=== PATIENT | female | born 1965 | race Caucasian/White ===

== ENCOUNTER → 2018-09-01 | Outpatient (CLI) | payer OTHER ==
[~2018-09-01] VITALS: Ht 162.6 cm; Wt 74.8 kg
[~2018-09-01] MED LIST: CIPR500T78 PO; CODE-54 PO; LIDOCAINE 1% INJ 20 ML 20 ML VIAL INJ ONE; LIDOCAINE 1% INJ 20 ML 20 ML VIAL ONE; ONDA-42 SL; OXYC-272 PO
--- NOTE | 2018-09-01 10:46 | Diagnostic Imaging Report ---
Right shoulder injection for MRI. INDICATION: Shoulder pain. COMPARISON: There are no prior studies available for comparison. PROCEDURE: Following aseptic preparation of the skin and administration of local anesthesia, a 21-gauge needle was advanced into the glenohumeral joint using fluoroscopic guidance. Subsequently, 12 cc of a mixture of Omnipaque 240, Gadavist and sodium chloride was infused. The patient tolerated the procedure well and was sent to the MR suite in good condition. 24.9 seconds of fluoroscopy time was utilized. IMPRESSION: There has been successful injection of the right glenohumeral joint. MRI is pending for further study. Dictated by: Dictated on workstation # [id number]
--- NOTE | 2018-09-01 10:58 | Diagnostic Imaging Report ---
EXAMINATION: MRI of the right upper extremity with contrast. INDICATION: Shoulder pain. TECHNIQUE: Multiplanar images utilizing both T1 and T2-weighted sequences were performed. This study was conducted following administration of intraarticular contrast. FINDINGS: On the coronal fat-saturated series, there is a linear collection of fluid along the anterior margin of the superior glenoid labrum. This does suggest a SLAP 2 tear. Furthermore the middle glenohumeral ligament is somewhat indistinct in this area and may be partially torn as well. There is no other labral tear identified. There is no abnormal signal arising from the rotator cuff to suggest a tear. The supraspinatus muscle is not retracted or bunched. There is hypertrophy of the acromioclavicular joint and this does result in slight narrowing of the outlet for the supraspinatus muscle. The biceps tendon and the subscapularis tendon are intact. There is no abnormal signal arising from the osseous structures to indicate bone edema or fracture. IMPRESSION: 1. There is a SLAP 2 tear of the anterior labrum superiorly. The indistinct appearance of the middle glenohumeral ligament in this region also suggests that the ligament is partially torn. The labrum is otherwise intact. 2. There is no evidence for an injury to the rotator cuff. 3. There is hypertrophy of the acromioclavicular joint and this does result in mild narrowing of the outlet for the supraspinatus muscle. 4. There is no sign of an acute bony abnormality. Dictated by: Dictated on workstation # [id number]
== END ==
LOC: RAD 08:37
PROVIDERS: ATTEND Orthopaedic Surgery
DX: S43.491A Other sprain of right shoulder joint, initial encounter (principal); S43.431A Superior glenoid labrum lesion of right shoulder, initial encounter; M62.89 Other specified disorders of muscle
CPT/HCPCS: 23350; 73040; 73222

== ENCOUNTER 2020-06-06 05:36 | Outpatient (RCR) | payer OTHER ==
[2020-05-31 12:30] LABS: BASOPHILS # (AUTO) 0.1 10^3/uL (0.0-0.1); BASOPHILS % (AUTO) 1 % (0-10); EOSINOPHILS # (AUTO) 0.2 10^3/uL (0.0-0.3); EOSINOPHILS % (AUTO) 4 % (0-10); HEMATOCRIT 41 % (35-52); HEMOGLOBIN 13.6 g/dL (11.5-16.0); LYMPHOCYTES # (AUTO) 2.1 10^3/uL (1.0-4.0); LYMPHOCYTES % (AUTO) 37 % (12-44); MEAN CORPUSCULAR HEMOGLOBIN 30 pg (25-34); MEAN CORPUSCULAR HGB CONC 33 g/dL (32-36); MEAN CORPUSCULAR VOLUME 90 fL (80-99); MEAN PLATELET VOLUME 12.1 fL (9.0-12.2); MONOCYTES # (AUTO) 0.4 10^3/uL (0.0-1.0); MONOCYTES % (AUTO) 7 % (0-12); NEUTROPHILS % (AUTO) 52 % (42-75); PLATELET COUNT 171 10^3/uL (130-400); WHITE BLOOD COUNT 5.7 10^3/uL (4.3-11.0)
[2020-05-31 12:33] LABS: BILIRUBIN,URINE NEGATIVE (NEGATIVE); CLARITY,URINE SL CLOUDY; COLOR,URINE YELLOW; GLUCOSE, URINE (UA) NEGATIVE (NEGATIVE); KETONES,URINE NEGATIVE (NEGATIVE); LEUKOCYTE ESTERASE ,URINE NEGATIVE (NEGATIVE); NITRITE,URINE NEGATIVE (NEGATIVE); PROTEIN,URINE NEGATIVE (NEGATIVE)
[2020-05-31 12:39] LABS: BACTERIA,URINE NEGATIVE /HPF; CALCIUM OXALATE CRYSTALS,UR LARGE /LPF
--- NOTE | 2020-05-31 12:41 | Diagnostic Imaging Report ---
EXAMINATION: PA and lateral chest at 12:29 p.m. INDICATION: Preop. FINDINGS: There are no prior studies available for comparison. The heart size is within normal limits. The lungs are clear. There is no evidence for failure, pneumonia, or for a pleural effusion. The mediastinum is not widened. The osseous structures are intact. There is an orthopedic plate and screw fixation device overlying the lower cervical spine. IMPRESSION: There is no evidence for an acute cardiopulmonary abnormality. Dictated by: Dictated on workstation # [id number]
[2020-05-31 12:43] LABS: INR 0.9 (0.8-1.4); PROTHROMBIN TIME PATIENT 12.9 SEC (12.2-14.7)
[2020-05-31 12:45] LABS: ERYTHROCYTE SEDIMENTATION RATE 10 MM/HR (0-30)
[2020-05-31 12:52] LABS: ALANINE AMINOTRANSFERASE 21 U/L (0-55); ALBUMIN 3.8 GM/DL (3.2-4.5); ALKALINE PHOSPHATASE 120 U/L (40-136); BILIRUBIN,TOTAL 0.3 MG/DL (0.1-1.0); BUN/CREATININE RATIO 25; CALCIUM 8.4 MG/DL (8.5-10.1); CARBON DIOXIDE 24 MMOL/L (21-32); CHLORIDE 106 MMOL/L (98-107); CREATININE SERUM 0.76 MG/DL (0.60-1.30); GFR ESTIMATED > 60; GLUCOSE 87 MG/DL (70-105); POTASSIUM 3.9 MMOL/L (3.6-5.0); SODIUM 138 MMOL/L (135-145); TOTAL PROTEIN 6.5 GM/DL (6.4-8.2)
[~2020-06-06] VITALS: Ht 162 cm; Wt 85.1 kg
[~2020-06-06 05:36] MED LIST changes: +BUTA1TAB9 PO; +CHOL500061 PO; +ESTR2TAB PO; +FERR-84 PO; +FOLI0.8T PO; +GABA-486 PO; +LEVO112T68 PO; -LIDOCAINE 1% INJ 20 ML 20 ML VIAL INJ ONE; -LIDOCAINE 1% INJ 20 ML 20 ML VIAL ONE; +MAGN400T39 PO; +PREG300C19 PO; +THYR65TA5 PO; +TRAM50TA3 PO; +VENL75TA2 PO; +ZOLP10TA PO
== END 2020-06-06 10:00 | disposition home or self-care (01) ==
LOC: PREOP 05:36
PROVIDERS: ATTEND Orthopaedic Surgery
DX: Z01.818 Encounter for other preprocedural examination (principal); Z01.812 Encounter for preprocedural laboratory examination; M17.12 Unilateral primary osteoarthritis, left knee; Z11.2 Encounter for screening for other bacterial diseases; Z20.828 Contact with and (suspected) exposure to other viral communicable diseases
CPT/HCPCS: 36415; 71046; 80053; 81000; 85025; 85610; 85652; 86850; 86900; 86901; 87081; 87635; 93005

== ENCOUNTER 2020-06-08 06:05 | Inpatient (IN) | payer OTHER ==
--- NOTE | 2020-05-30 12:08 | HISTORY AND PHYSICAL ---
DATE OF SERVICE: DATE OF SERVICE AND SURGERY/DATE OF ADMISSION: 06/08/2020 for left total knee arthroplasty. The patient will require regular inpatient admission for pain management, mobility issues and need for physical therapy. HISTORY OF PRESENT ILLNESS: The patient is a 54-year-old female who injured her left knee with the fall. She underwent arthroscopy where she was found to have a huge osteochondral defect throughout her medial compartment. She underwent arthroscopy with debridement. Radiographs reveal loss of medial joint space. She has undergone treatment with manipulation as well, but has had progressive loss of function with stiffness and pain in the knee. Radiographs reveal complete loss of medial and patellofemoral joint spaces. Due to functional impairment and failure to improve with conservative measures, the patient elected to proceed with surgical intervention. REVIEW OF SYSTEMS: No chest pain, no shortness of breath, no dysuria. PAST MEDICAL HISTORY: Nephrolithiasis, migraine headaches, arthralgia, hypothyroidism. PAST SURGICAL HISTORY: gastric bypass, hysterectomy, tonsillectomy, left shoulder C5 through C7 fusion, right shoulder arthroscopy, right lateral epicondyle debridement, left knee microfracture. SOCIAL HISTORY: The patient denies alcohol, tobacco use. FAMILY HISTORY: Significant for uterine cancer and diabetes. PRIMARY CARE PROVIDER: Ailyn Valiente. MEDICATIONS: Euthyrox, Excedrin, estradiol, iron, venlafaxine, sumatriptan, gabapentin, tramadol, zolpidem, topiramate, phentermine, scopolamine. ALLERGIES: No known drug allergies. PHYSICAL EXAMINATION: GENERAL: The patient is well-developed, well-nourished, in no acute distress. HEENT: Normocephalic, atraumatic. Pupils are equal, round and reactive to light. Oropharynx is clear. NECK: Supple, no lymphadenopathy. LUNGS: Clear to auscultation bilaterally. HEART: Regular rate and rhythm. ABDOMEN: Soft, nontender, nondistended. EXTREMITIES: Left knee demonstrates varus alignment. Range of motion 0/5/120. She is markedly tender along the medial joint line, has pain medially with Rae. There is no varus valgus laxity. Negative anterior and posterior drawer. No skin lesions are noted. Sensation is intact distally. IMPRESSION: Severe left knee osteoarthritis, unresponsive to conservative measures. PLAN: Left total knee arthroplasty. The risks, benefits, options, ramifications and recovery have been discussed at length with the patient. She understands and wishes to proceed. Job ID: [id number] DocumentID: [id number] Dictated Date: 05/30/2020 11:30:50 Regenerator Operator Date: 05/30/2020 12:08:25 Dictated By: EVARISTO BROWER MD
[2020-06-08] VITALS (13 sets, daily range): BP systolic 124–144; BP diastolic 71–87
[~2020-06-08] VITALS: Ht 162 cm; Wt 85.1 kg
[2020-06-08] MEDS ORDERED: fentaNYL INJECTION 100 MCG/2 ML AMP ONE ×2 (06:32→08:03)
[2020-06-08] MEDS ORDERED: MIDAZOLAM 2 MG/2 ML (VERSED) VIAL ONE (06:33)
[2020-06-08] MEDS ORDERED: CATHETER FLUSH 10 ML SYR IV PRN (06:45)
[2020-06-08] MEDS ORDERED: CEFUROXIME INJECTION 1,500 MG in WATER (STERILE) FOR INJECTION 15 ML IV ONE (06:45)
[2020-06-08] MEDS: LACTATED RINGERS 1,000 ML IV PRN ×2 (06:55→09:05)
[2020-06-08] MEDS ORDERED: proPOfol 200 MG/20 ML (DIPRIVAN) VIAL IV ONE (07:12)
[2020-06-08] MEDS ORDERED: ROPIVACAINE 5MG/ML 30ML VIAL ONE ×2 (07:12→07:21)
[2020-06-08] MEDS ORDERED: diphenhydrAMINE 50 MG/ML INJ (BENADRYL) IVP PRN (07:15)
[2020-06-08] MEDS ORDERED: ONDANSETRON 4 MG/2 ML (SDV) Z0FRAN IVP PRN ×2 (07:15→09:30)
[2020-06-08] MEDS ORDERED: ONDANSETRON 4 MG/2 ML (SDV) Z0FRAN ONE ×2 (07:21→09:38)
[2020-06-08] MEDS ORDERED: SEVOFLURANE (ULTANE) 15 ML INHAL SOLN ONE ×5 (07:21→09:02)
[2020-06-08] MEDS ORDERED: LIDOCAINE PF 2% 5 ML (XYLOCAINE) VIAL ONE ×2 (07:22)
--- NOTE | 2020-06-08 07:28 | Progress Note-Pre Operative ---
Pre-Operative Progress Note H&P Reviewed The H&P was reviewed, patient examined and no changes noted. Date Seen by Provider: Jun 08, 2020 Time Seen by Provider: 07:20 Date H&P Reviewed: Jun 08, 2020 Time H&P Reviewed: 07:11 Pre-Operative Diagnosis: left knee primary osteoarthritis EVARISTO BROWER MD Jun 08, 2020 07:28
--- NOTE | 2020-06-08 07:29 | Progress Note-Post Operative ---
Post-Operative Progess Note Surgeon (s)/Reconstructive Dentist (s) Surgeon EVARISTO BROWER MD Reconstructive Dentist: Juan Rawls Pre-Operative Diagnosis left knee primary osteoarthritis Post-Operative Diagnosis left knee primary osteoarthritis Procedure & Operative Findings Date of Procedure 06/08/20 Procedure Performed/Findings left total knee arthroplasty Anesthesia Type GETA Estimated Blood Loss Estimated blood loss (mL): minimal Specimens/Packing Specimens Removed none Packing: none EVARISTO BROWER MD Jun 08, 2020 07:28
[2020-06-08] MEDS ORDERED: SCOPOLAMINE 1.5 MG (TRANSDERM-SCOP) PATCH TOP ONE (07:30)
[2020-06-08] MEDS ORDERED: FAMOTIDINE 20MG/2ML IV (PEPCID) IV ONE (07:30)
[2020-06-08] MEDS ORDERED: INTRA-ARTICULAR IU ONE ×5 (07:30)
[2020-06-08] MEDS ORDERED: ONDANSETRON 4 MG/2 ML (SDV) Z0FRAN IV ONE (07:30)
--- NOTE | 2020-06-08 07:31 | D/C HH Face to Face Order ---
D/C Face to Face Orders Reconcile Patient Problems Problems Reviewed?: Yes Instructions for Patient Via Annita GENELINK, Patient Instructions/FollowUp: three weeks Physician to follow Patient: three weeks Discharge Diet for Home: Regular Diet Patient Data-Allergies,Ht & Wt Patient Allergies: Coded Allergies: adhesive tape (Verified Allergy, Mild, RASH, 06/08/20) Height (Feet): 5 Height (Inches): 4.00 Weight (Pounds): 165 Weight (Ounces): 0.0 Home Health Need/Face to Face Date of Face to Face: Jun 08, 2020 Clinical Findings: Instability, Muscle weakness, Pain with ambulation, Unsteady gait I have seen Pt [id number]: Yes Discharged To: Home Diagnosis/Conditions: left total knee arthroplasty Patient is Homebound due to: Cely fall risk due to instabilty, Muscle weakness, Pain w/ambulation Homebound Status Due to the above stated illness, injury or surgical procedure (medical condition or diagnosis) and associated clinical findings, the patient is homebound because of his/her inability to leave home except with aid of a supportive device and/or person AND leaving the home requires a considerable and taxing effort or is medically contraindicated. Pt req the following assistanc: [facility] Nursing Orders Home Health Services Order: Physical Therapy-Evaluate & Treat DC left knee mark and apply steri strips 06/22/20 Home Health Infusion Therapy Line Start Date: Jun 08, 2020 Therapy Orders Therapy Orders: Physical Therapy, PT to assess for OT Therapy Specific Orders: Eval assistive deivces, Teach enviro modifications/safety, Gait training, Increase strength/endurance, Provider maintenance therapy, Restore ROM OK to begin on Saturday Certify Stmt I certify that this patient is under my care and that I, a nurse practitioner or a physician; a assistant curator working with me, had a face to face encounter that - meets the physician face to face encounter requirements with this patient as dated. EVARISTO BROWER MD Jun 08, 2020 07:31
[2020-06-08] MEDS ORDERED: TRANEXAMIC ACID 100 MG/ML 10 ML INJECTION IV ONE (07:54)
[2020-06-08] MEDS ORDERED: HYDROmorphone 2 MG/ML VIAL (DILAUDID) IV ONE (09:30)
[2020-06-08] MEDS ORDERED: PROMETHAZINE INJ 25 MG/ML (PHENERGAN) AMP IVP ONE (09:30)
[2020-06-08] MEDS ORDERED: MEPERIDINE (DEMEROL) INJ 50 MG/ML IVP ONE (09:30)
[2020-06-08] MEDS ORDERED: morphine INJ 10 MG/ML 1ML (SYR OR VIAL) IVP ONE (09:30)
[2020-06-08] MEDS ORDERED: morphine INJ 10 MG/ML 1ML (SYR OR VIAL) ONE (09:38)
--- NOTE | 2020-06-08 10:03 | Progress Note ---
Standard Progress Note Progress Notes/Assess & Plan Date Seen by a Provider: Jun 08, 2020 Time Seen by a Provider: 10:02 Progress/Assessment & Plan no complaints radiographs--HW well positioned without fracture LLE--2plus DP pulse with brisk cap refill. Intact DF and PF of toes and ankle. Sensation intact to light touch throughout s/p LTKA mobilize as able EVARISTO BROWER MD Jun 08, 2020 10:03
--- NOTE | 2020-06-08 10:10 | NUR ---
PT ARRIVED FROM RECOVER, REPORT RECEIVED FROM ANGELICA LINARES
[2020-06-08] MEDS: SENNA W/DOCUSATE (SENOKOT S) TABLET PO SCH ×2 (10:27→20:37)
[2020-06-08] MEDS ORDERED: morphine PCA 100 MG/100 ML BAG IV ONE (10:34)
[2020-06-08] MEDS ORDERED: NS IV 1000 ML 1,000 ML ONE (10:34)
[2020-06-08] MEDS: morphine PCA 100 MG/100 ML BAG IV PRN (10:57)
[2020-06-08] MEDS: NS IV 1000 ML 1,000 ML IV SCH ×2 (11:00→22:57)
--- NOTE | 2020-06-08 12:16 | Diagnostic Imaging Report ---
INDICATION: Postop left knee. TIME OF EXAM: 09:49 a.m. FINDINGS: Two views of the left knee demonstrate postoperative changes of total knee arthroplasty. Prosthetic elements appear to be in good position. No fracture or loosening is identified. Overlying skin mark are noted. IMPRESSION: Satisfactory postop appearance to the left knee. Dictated by: Dictated on workstation # [id number]
--- NOTE | 2020-06-08 12:55 | OPERATIVE REPORT ---
DATE OF SERVICE: 06/08/2020 PREOPERATIVE DIAGNOSIS: Left knee primary osteoarthritis. POSTOPERATIVE DIAGNOSIS: Left knee primary osteoarthritis. PROCEDURE: Left total knee arthroplasty. SURGEON: Jabier Brower MD STEEL CUTTER: Juan Rawls, who assisted throughout the procedure and closed the incision. ANESTHESIA: General endotracheal by Noam Suresh CRNA. TOURNIQUET TIME: Approximately 65 minutes at 300 mmHg. ESTIMATED BLOOD LOSS: Minimal. DRAINS: None. COMPLICATIONS: None. POSTOPERATIVE PLAN: Routine total knee protocol. MATERIALS: Microport cemented size 3 femur, cemented size 3 tibia with 10 mm insert and cemented size 29 patellar button. STATEMENT OF MEDICAL NECESSITY: The patient is a 54-year-old female with progressively worsening left knee pain. She has undergone treatment with injections, anti-inflammatories as well as arthroscopy without relief. Radiographs revealed severe medial compartment and patellofemoral compartment joint space narrowing. Due to functional impairment and failure to improve with extensive conservative measures, the patient elected to proceed with surgical intervention. DESCRIPTION OF PROCEDURE: After risks and benefits of procedure were discussed and questions were answered, an informed consent was signed and placed on chart. The operative site was confirmed in the preoperative holding area initialed by the surgeon. The patient was then transferred to the operating room and after adequate levels of general endotracheal anesthetic were obtained, a timeout was called, confirming the operative site. The left lower extremity was prepped and draped in the usual sterile fashion. With the leg elevated and the knee flexed, tourniquet was inflated to 300 mmHg. Standard anterior approach was utilized. Hemostasis was obtained with cautery. Medial parapatellar arthrotomy was performed leaving 1 cm cuff on the patella for later reattachment. A portion of the fat pad was resected. Subperiosteal release was performed on the proximal medial tibia being careful to stay on the bony surface. The ACL was resected. The intramedullary guide was passed into the femoral canal. The cutting block was placed. The distal cut was made. The femur sized to a size 3. The 3 cutting block was placed parallel to the epicondylar axis and cuts were made from posterior to anterior. Subperiosteal release was then carefully performed on the posterior distal femur, being careful to stay on the bony surface. The intramedullary guide was then passed into the tibia and the cutting block was placed. The drop reyna transected the intermalleolar axis and the cut was made. The three baseplate was placed and pinned into position. The drop reyna again transected intermalleolar axis and this was prepared with the drill and keel punch. The 10 mm trial insert was placed. The femoral trial was placed and trochlear cut was made. The patella was then prepared by using the freehand technique and resecting 10 mm off the undersurface. Peg guide was placed and peg holes were drilled. The 29 trial was placed and the knee was taken through range of motion. Full extension was easily obtained under 20 degrees of flexion with gravity was easily obtained. There was no anterior/posterior or medial/lateral laxity in flexion or extension. The patella tracked well. The trials were removed. The joint was irrigated with pulse lavage. Periarticular block was placed in the posterior capsule, medial and lateral retinaculum extensor mechanism subcutaneous tissues. The bone ends were irrigated and dried. The tibial baseplate was cemented into position. Excessive cement was removed, the superior surface was irrigated and dried and the polyethylene insert was placed. Distal femur was irrigated and dried and the femoral prosthesis was cemented in position. Excessive cement was removed. The knee was brought out into full extension until cement had cured. The undersurface of patella was irrigated and dried. The patellar button was cemented into position. Once the cement had , the knee was taken through range of motion. Full extension was easily obtained under 20 degrees of flexion with gravity was obtained. The patella tracked well. There was no anterior/posterior or medial/lateral laxity in flexion or extension. The joint was further irrigated. The arthrotomy was closed with 2-0 Tevdek in uxcoos-gc-tnzho interrupted fashion. Knee was flexed with no undue tension was noted at the repair site. The subcutaneous tissues were irrigated using a total of 7 liters throughout the procedure. A 0 Vicryl was used to deep subcutaneous tissue, 2-0 Vicryl for the superficial subcutaneous tissue, mark used on the skin. A soft dressing was applied. The patient was transferred to the recovery room awake and in stable condition. Job ID: [id number] DocumentID: [id number] Dictated Date: 06/08/2020 09:21:35 Marble Cutter Operator Date: 06/08/2020 12:54:59 Dictated By: JABIER BROWER MD
--- NOTE | 2020-06-08 15:22 | Physical Therapy Evaluation ---
PT Evaluation-General Medical Diagnosis Admission Date Jun 08, 2020 at 06:05 Medical Diagnosis: left TKA Onset Date: Jun 08, 2020 Therapy Diagnosis Therapy Diagnosis: impaired mobility, strength, endurance, ROM Height/Weight Height (Feet): 5 Height (Inches): 4.00 Weight (Pounds): 165 Weight (Ounces): 0.0 Precautions Precautions/Isolations: Standard Precautions Weight Bear Status Left Lower Extremity: Left Weight Bearing/Tolerated Referral Physician: Curly Reason for Referral: Evaluation/Treatment Medical History Additional Medical History PAST MEDICAL HISTORY: Nephrolithiasis, migraine headaches, arthralgia, hypothyroidism. PAST SURGICAL HISTORY: gastric bypass, hysterectomy, tonsillectomy, left shoulder C5 through C7 fusion, right shoulder arthroscopy, right lateral epicondyle debridement, left knee microfracture. Reviewed History: Yes Social History Home: Single Level Current Living Status: Spouse Entry Into Home: Stairs Without Railing PT Steps Into Home: 5 Prior Prior Level of Function SCALE: Activities may be completed with or without assistive devices. 7-Wtlwelaxju-wxgqzob completes the activity by him/herself with no assistance from a helper. 5-Set-up or Clean-up Assistance-helper sets up or cleans up; patient completes activity. [place] assists only prior to or following the activity. 4-Supervision or Touching Assistance-helper provides verbal cues and/or touching/steadying and/or contact guard assistance as patient completes activity. Assistance may be provided throughout the activity or intermittently. 3-Partial/Moderate Assistance-helper does LESS THAN HALF the effort. [place] lifts, holds or supports trunk or limbs, but provides less than half the effort. 2-Substantial/Maximal Assistance-helper does MORE THAN HALF the effort. [place] lifts or holds trunk or limbs and provides more than half the effort. 4-Fzcoqbeui-cngrzp does ALL the effort. Patient does none of the effort to complete the activity. Or, the assistance of 2 or more helpers is required for the patient to complete the activity. If activity was not attempted, code reason: 7-Patient Refused. 9-Not Applicable-not attempted and the patient did not perform the activity before the current illness, exacerbation or injury. 10-Not Attempted due to Environmental Limitations-(lack of equipment, weather restraints, etc.). 88-Not Attempted due to Medical Conditions or Safety Concerns. Bed Mobility: 6 Transfers (B,C,W/C): 6 Gait: 6 Stairs: 6 Indoor Mobility (Ambulation): Independent Stairs: Independent PT Evaluation-Current Subjective Patient in bed pre tx, agrees to PT, has 5/10 in left knee. Pt/Family Goals to be independent at home Objective Patient Orientation: Person, Place, Situation Attachments: IV ROM/Strength ROM Lower Extremities left knee extension +5 degrees, flexion 70 degrees Sensory Vision: Wears Glasses Hearing: Functional Sensation Right Lower Extremit: Intact Sensation Left Lower Extremity: Intact Transfers Roll Left to Right (QC): 6 Sit to Lying (QC): 5 Lying to Sitting/Side of Bed(Q: 5 Sit to Stand (QC): 4 Chair/Fmo-fk-Agdmf Xfer(QC): 4 Gait Does the Patient Walk?: Yes Mode of Locomotion: Walk Anticipated Mode of Locomotion: Walk Walk 10 feet (QC): 4 Walk 50 ft with 2 Turns(QC): 4 Distance: 100' Gait Assistive Device: FWW Comments/Gait Description Slow but steady, flexed left knee but she is able to bear weight on it. Balance Sitting Static: Normal Sitting Dynamic: Normal Standing Static: Good Standing Dynamic: Good Treatment BLE supine TKA protocol x10 (AP, QS, HS, SAQ, SLR), CPM donned and adjusted to patient's leg and set to 60/-2. Assessment/Needs Patient has impaired mobility, strength, endurance. She had some extra bleeding through bandage but not excessive. Patient in bed post tx with nurse call, phone tray, all needs met, CPM donned, SCD's on. Rehab Potential: Fair PT Mixer Pigment Goals Chcf Goals PT Chcf Goals Time Frame: Jun 15, 2020 Roll Left & Right (QC): 6 Sit to Lying (QC): 6 Lying-Sitting on Side/Bed(QC): 6 Sit to Stand (QC): 6 Chair/Sgd-hg-Cbvfv Xfer(QC): 6 Walk 10 feet (QC): 5 Walk 50ft with 2 Turns (QC): 5 Walk 150 ft (QC): 5 1 Step (curb) (QC): 4 4 Steps (QC): 4 PT Plan Problem List Problem List: Activity Tolerance, Functional Strength, Safety, Balance, Gait, Transfer, Bed Mobility, ROM Treatment/Plan Treatment Plan: Continue Plan of Care Treatment Plan: Bed Mobility, Education, Functional Activity Ravindra, Functional Strength, Gait, Safety, Therapeutic Exercise, Transfers Treatment Duration: Jun 15, 2020 Frequency: 11 times per week Estimated Hrs Per Day: .25 hour per day Patient and/or Family Agrees t: Yes Safety Risks/Education Patient Education: Gait Training, Transfer Techniques, Correct Positioning, Safety Issues Teaching Recipient: Patient Teaching Methods: Demonstration, Discussion Response to Teaching: Reinforcement Needed Discharge Recommendations Plan Patient will perform bed mobility and transfer training, balance and endurance training, functional strengthening, stair training, gait training, and education to improve functional mobility at home. Therapy Discharge Recommendati: Home & Family Time/GCodes Time In: 1444 Time Out: 1509 Total Billed Treatment Time: 25 Total Billed Treatment 1 visit CARINA 15' FA 10' OLIVER DUNBAR PT Jun 08, 2020 15:22
[2020-06-08] MEDS: CEFUROXIME INJECTION 750 MG in WATER (STERILE) FOR INJECTION 10 ML IV SCH (16:34)
[2020-06-08] MEDS: LEVOTHYROXINE 112 MCG (LEVOTHROID) TAB PO SCH (20:37)
[2020-06-08] MEDS: GABAPENTIN 100 MG (NEURONTIN) CAP PO SCH (20:37)
[2020-06-08] MEDS: PREGABALIN 150 MG (LYRICA) CAPSULE PO SCH (20:37)
[2020-06-08] MEDS: ACETAMINOPHEN 325 MG TABLET PO PRN (20:38)
[2020-06-08] MEDS ORDERED: PREGABALIN 300 MG PO SCH (21:00)
[2020-06-09] VITALS: BP 113/67
[2020-06-09] MEDS: CEFUROXIME INJECTION 750 MG in WATER (STERILE) FOR INJECTION 10 ML IV SCH (00:30)
[2020-06-09] MEDS: oxyCODONE/APAP 5/325MG (PERCOCET 5) TABLET PO PRN ×4 (00:57→09:52)
[2020-06-09 04:00] VITALS: BP 108/63
[2020-06-09 05:10] LABS: HEMOGLOBIN 10.5 g/dL (11.5-16.0)
[2020-06-09 05:53] LABS: BASOPHILS % (AUTO) 0 % (0-10); EOSINOPHILS % (AUTO) 1 % (0-10); HEMATOCRIT 33 % (35-52); HEMOGLOBIN 10.5 g/dL (11.5-16.0); LYMPHOCYTES % (AUTO) 35 % (12-44); MEAN CORPUSCULAR HEMOGLOBIN 30 pg (25-34); MEAN CORPUSCULAR HGB CONC 32 g/dL (32-36); MEAN CORPUSCULAR VOLUME 94 fL (80-99); MEAN PLATELET VOLUME 12.9 fL (9.0-12.2); MONOCYTES # (AUTO) 0.5 10^3/uL (0.0-1.0); MONOCYTES % (AUTO) 10 % (0-12); NEUTROPHILS % (AUTO) 54 % (42-75); PLATELET COUNT 118 10^3/uL (130-400); WHITE BLOOD COUNT 5.6 10^3/uL (4.3-11.0)
[2020-06-09 05:57] LABS: ALBUMIN 3.2 GM/DL (3.2-4.5); CHLORIDE 107 MMOL/L (98-107); POTASSIUM 3.9 MMOL/L (3.6-5.0); SODIUM 142 MMOL/L (135-145)
[2020-06-09 05:58] LABS: CALCIUM 7.9 MG/DL (8.5-10.1)
[2020-06-09 05:59] LABS: GLUCOSE 120 MG/DL (70-105)
[2020-06-09 06:00] LABS: TOTAL PROTEIN 5.4 GM/DL (6.4-8.2)
[2020-06-09 06:01] LABS: BILIRUBIN,TOTAL 0.3 MG/DL (0.1-1.0); CARBON DIOXIDE 26 MMOL/L (21-32)
[2020-06-09 06:03] LABS: ALKALINE PHOSPHATASE 130 U/L (40-136); CREATININE SERUM 0.74 MG/DL (0.60-1.30); GFR ESTIMATED > 60
[2020-06-09 06:04] LABS: BUN/CREATININE RATIO 9
[2020-06-09 06:06] LABS: ALANINE AMINOTRANSFERASE 122 U/L (0-55)
[2020-06-09] MEDS: THYROID (ARMOUR) 60 MG TABLET PO SCH (06:30)
[2020-06-09] MEDS: MULTIVIT W/MINERALS TAB (THERAGRAN M) PO SCH (06:31)
--- NOTE | 2020-06-09 06:52 | Anesthesia-General Post-Op ---
General Patient Condition Mental Status/LOC: Same as Preop Cardiovascular: Satisfactory Nausea/Vomiting: Absent Respiratory: Satisfactory Pain: Controlled Complications: Absent Post Op Complications Complications None Follow Up Care/Instructions Patient Instructions None needed. Anesthesia/Patient Condition Patient Condition Patient is doing well, no complaints, stable vital signs, no apparent adverse anesthesia problems. No complications reported per nursing. NORMAN STEPHEN CRNA Jun 09, 2020 06:52
[2020-06-09] MEDS: ENOXAPARIN 30 MG/0.3 ML (LOVENOX) SYR SC SCH ×2 (07:23→20:34)
--- NOTE | 2020-06-09 07:55 | Progress Note ---
Standard Progress Note Progress Notes/Assess & Plan Date Seen by a Provider: Jun 09, 2020 Time Seen by a Provider: 07:54 Progress/Assessment & Plan no complaints radiographs--HW well positioned without fracture LLE--2plus DP pulse with brisk cap refill. Intact DF and PF of toes and ankle. Sensation intact to light touch throughout s/p LTKA mobilize as able Final Diagnosis no complaints Vital Signs Date Time Temp Pulse Resp B/P (MAP) Pulse Ox O2 Delivery O2 Flow Rate FiO2 06/09/20 05:09 100 16 95 06/09/20 04:00 37.7 117 16 108/63 (78) 91 Room Air 06/09/20 00:00 37.2 104 16 113/67 (82) 91 Room Air 06/08/20 20:37 Room Air 06/08/20 20:00 37.0 79 16 124/76 (92) 99 Room Air 06/08/20 16:00 36.4 88 16 125/80 (95) 93 Room Air 06/08/20 12:00 36.8 90 20 127/84 (98) 97 Room Air 06/08/20 11:07 94 Room Air 06/08/20 10:15 Room Air 06/08/20 10:15 36.2 15 134/85 (101) 97 Room Air 06/08/20 10:10 36.1 97 20 136/87 (103) 94 Room Air 06/08/20 10:10 36.2 15 134/85 (101) 97 Room Air 06/08/20 10:00 Room Air 06/08/20 10:00 14 139/81 (100) 96 Room Air 06/08/20 09:50 16 144/86 (105) 100 OxyMask 2 06/08/20 09:45 OxyMask 4 06/08/20 09:40 14 141/87 (105) 100 OxyMask 4 06/08/20 09:30 16 132/80 (97) 99 OxyMask 8 06/08/20 09:30 OxyMask 8 06/08/20 09:20 36.1 18 125/71 (89) 95 OxyMask 8 06/08/20 09:19 OxyMask 8 06/08/20 09:19 36.1 18 125/71 (89) 95 OxyMask 8 10/7/20 08:33 36.7 89 18 126/80 98 Room Air 06/08/20 08:23 98 Room Air I & O 06/09/20 06:59 Intake Total 5015 ml Output Total 4300 ml Balance 715 ml Laboratory Tests Test 06/09/20 04:25 Range/Units White Blood Count 5.6 4.3-11.0 10^3/uL Red Blood Count 3.52 L 3.80-5.11 10^6/uL Hemoglobin 10.5 L 11.5-16.0 g/dL Hematocrit 33 L 35-52 % Mean Corpuscular Volume 94 80-99 fL Mean Corpuscular Hemoglobin 30 25-34 pg Mean Corpuscular Hemoglobin Concent 32 32-36 g/dL Red Cell Distribution Width 13.6 10.0-14.5 % Platelet Count 118 L 130-400 10^3/uL Mean Platelet Volume 12.9 H 9.0-12.2 fL Immature Granulocyte % (Auto) 0 % Neutrophils (%) (Auto) 54 42-75 % Lymphocytes (%) (Auto) 35 12-44 % Monocytes (%) (Auto) 10 0-12 % Eosinophils (%) (Auto) 1 0-10 % Basophils (%) (Auto) 0 0-10 % Neutrophils # (Auto) 3.0 1.8-7.8 10^3/uL Lymphocytes # (Auto) 2.0 1.0-4.0 10^3/uL Monocytes # (Auto) 0.5 0.0-1.0 10^3/uL Eosinophils # (Auto) 0.0 0.0-0.3 10^3/uL Basophils # (Auto) 0.0 0.0-0.1 10^3/uL Immature Granulocyte # (Auto) 0.0 0.0-0.1 10^3/uL Sodium Level 142 135-145 MMOL/L Potassium Level 3.9 3.6-5.0 MMOL/L Chloride Level 107 98-107 MMOL/L Carbon Dioxide Level 26 21-32 MMOL/L Anion Gap 9 5-14 MMOL/L Blood Urea Nitrogen 7 7-18 MG/DL Creatinine 0.74 0.60-1.30 MG/DL Estimat Glomerular Filtration Rate > 60 BUN/Creatinine Ratio 9 Glucose Level 120 H 70-105 MG/DL Calcium Level 7.9 L 8.5-10.1 MG/DL Corrected Calcium 8.5 8.5-10.1 MG/DL Total Bilirubin 0.3 0.1-1.0 MG/DL Aspartate Amino Transf (AST/SGOT) 144 H 5-34 U/L Alanine Aminotransferase (ALT/SGPT) 122 H 0-55 U/L Alkaline Phosphatase 130 40-136 U/L Total Protein 5.4 L 6.4-8.2 GM/DL Albumin 3.2 3.2-4.5 GM/DL LLE--dressing intact. No calf tenderness. Neg Dionicio's. NVI s/p LTKA doing well PT/OT EVARISTO BROWER MD Jun 09, 2020 07:55
[2020-06-09 08:00] VITALS: BP 134/81
[2020-06-09] MEDS: SENNA W/DOCUSATE (SENOKOT S) TABLET PO SCH ×2 (08:22→20:32)
[2020-06-09] MEDS: ASPIRIN E.C. 81 MG (ECOTRIN) TAB PO SCH (08:23)
[2020-06-09] MEDS: GABAPENTIN 100 MG (NEURONTIN) CAP PO SCH ×2 (08:23→20:32)
[2020-06-09] MEDS: PREGABALIN 150 MG (LYRICA) CAPSULE PO SCH ×2 (08:23→20:32)
[2020-06-09] MEDS: ESTRADIOL 1 MG TAB (ESTRACE) PO SCH (08:23)
[2020-06-09] MEDS ORDERED: THYROID PORK 65 MG PO SCH (09:00)
[2020-06-09] MEDS ORDERED: ESTRADIOL 2 MG PO SCH (09:00)
--- NOTE | 2020-06-09 10:24 | NUR ---
SAI/VINNY visited with patient for social service consult. Plan: The patient will discharge home Saturday the with [facility]. Home Health: SAI/VINNY provided patient with patient preference form. She chose [facility]. SAI/VINNY contacted [place]. They do not service the [place] area. SAI/VINNY contacted [facility]. They do not have the availability to see patient. SAI/VINNY contacted [facility] and [facility]. SAI/VINNY has a referral to both home health agencies. Awaiting acceptance/denial. Walker: The patient has a second hand front wheeled walker. No further needs at this time. Addendum: 06/09/20 at 1251 by RYAN VILLAFUERTE SAI/VINNY received call from Ruba at [facility]. They will be able to admit patient and start physical therapy on Saturday. SAI/VINNY contacted [facility] and spoke with Cm to cancel referral. They verbalized understanding.
--- NOTE | 2020-06-09 10:33 | Physical Therapy Daily Note ---
PT Daily Note-Current Subjective Patient rates left knee pain 9/10 with meds issued and INSURANCE RATER. Pain Numeric Pain Scale: 9 Location: Left Location Body Site: Knee Pain Description: Acute Mental Status Patient Orientation: Normal For Age Attachments: IV Transfers SCALE: Activities may be completed with or without assistive devices. 9-Opxmhmodys-huwmudr completes the activity by him/herself with no assistance from a helper. 5-Set-up or Clean-up Assistance-helper sets up or cleans up; patient completes activity. [place] assists only prior to or following the activity. 4-Supervision or Touching Assistance-helper provides verbal cues and/or touc rain/steadying and/or contact guard assistance as patient completes activity. Assistance may be provided throughout the activity or intermittently. 3-Partial/Moderate Assistance-helper does LESS THAN HALF the effort. [place] lifts, holds or supports trunk or limbs, but provides less than half the effort. 2-Substantial/Maximal Assistance-helper does MORE THAN HALF the effort. [place] lifts or holds trunk or limbs and provides more than half the effort. 2-Mqktllhqv-awdhly does ALL the effort. Patient does none of the effort to complete the activity. Or, the assistance of 2 or more helpers is required for the patient to complete the activity. If activity was not attempted, code reason: 7-Patient Refused. 9-Not Applicable-not attempted and the patient did not perform the activity before the current illness, exacerbation or injury. 10-Not Attempted due to Environmental Limitations-(lack of equipment, weather restraints, etc.). 88-Not Attempted due to Medical Conditions or Safety Concerns. Roll Left & Right (QC): 6 Sit to Lying (QC): 6 Lying to Sitting/Side of Bed(Q: 6 Sit to Stand (QC): 6 Toilet Transfer (QC): 6 Weight Bearing Left Lower Extremity: Left Weight Bearing/Tolerated Gait Training Does the Patient Walk?: Yes Distance: 250' Walk 10 feet (QC): 5 Walk 50 ft with 2 Turns(QC): 5 Walk 150 ft (QC): 5 Gait Assistive Device: FWW left knee flexed with VC's for heel/toe gait sequence/very antalgic with patient not wanting to weight bear left. Exercises Supine Ex: Ankle pumps, Quad Set, Heel Slides, Straight leg raise Supine Reps: 10 Seated Therapy Exercises: Long arc quads Seated Reps: 10 Treatments CPM 0-78 degrees with polar pack in place Assessment Patient tolerated treatment well and returned to bed with CPM in place. Increase activity as tolerated by patient. PT Power Sweeper Operator Goals Power Sweeper Operator Goals PT Power Sweeper Operator Goals Time Frame: Jun 15, 2020 Roll Left & Right (QC): 6 Sit to Lying (QC): 6 Lying-Sitting on Side/Bed(QC): 6 Sit to Stand (QC): 6 Chair/Lnw-el-Ygqas Xfer(QC): 6 Walk 10 feet (QC): 5 Walk 50ft with 2 Turns (QC): 5 Walk 150 ft (QC): 5 1 Step (curb) (QC): 4 4 Steps (QC): 4 PT Plan Treatment/Plan Treatment Plan: Continue Plan of Care Treatment Plan: Bed Mobility, Education, Functional Activity Ravindra, Functional Strength, Gait, Safety, Therapeutic Exercise, Transfers Treatment Duration: Jun 15, 2020 Frequency: 11 times per week Estimated Hrs Per Day: .25 hour per day Patient and/or Family Agrees t: Yes Time/GCodes Time In: 945 Time Out: 1014 Total Billed Treatment Time: 24 Total Billed Treatment 1 visit EX 9 min GT 15 min MIREILLE DENISE PT Jun 09, 2020 10:32
[2020-06-09] MEDS: ACETAMINOPHEN 325 MG TABLET PO PRN ×4 (10:40→23:39)
[2020-06-09] MEDS: NS IV 1000 ML 1,000 ML IV SCH ×2 (10:41→23:39)
[2020-06-09 12:00] VITALS: BP 129/82
--- NOTE | 2020-06-09 12:25 | NUR ---
IRF Evaluation Determination: Denied Explanation: According to PT Progress Note, patient is ambulating (250ft, FWW) with setup, as well as transferring and completing bed mobility with independence; therefore, patient does not require additional therapy provided by ARU. Thank you for this referral.
--- NOTE | 2020-06-09 14:20 | Consultation - Hospitalist ---
NABIL NOVA MED STUDENT 06/09/20 1420: HPI History of Present Illness: HPI/Chief Complaint Consult: s/p L knee arthroplasty 54 y/o female s/p 1 day L knee arthroplasty. Patient states she has pain with walking but otherwise feels fine, noting she has been able to ambulate with physical therapy down the r[place]ie and walk to the recliner and toilet in her room. She complains of minor headache but denies CP, SOB and abdominal pain; has not yet passed a bowel movement. Source: patient Exam Limitations: no limitations Date Seen 06/09/20 Attending Physician Jabier Bernstein MD PCP No,Local Physician Referring Physician Date of Admission Jun 08, 2020 at 06:05 Home Medications & Allergies Home Medications Reviewed patient Home Medication Reconciliation performed by pharmacy medication reconciliations counter intelligence technician and/or nursing. Patients Allergies have been reviewed. Allergies Allergies Coded Allergies adhesive tape (Verified Allergy, Mild, RASH, 06/08/20) Past Repkrax-Uwytla-Dqbrqi Hx Patient Social History Alcohol Use: Denies Use Recreational Drug Use: No Smoking Status: Never a Smoker Physical Abuse Screen: No Sexual Abuse: No Recent Foreign Travel: No Contact w/other who traveled: No Recent Hopitalizations: No Recent Infectious Disease Expo: No Immunizations Up To Date Date of Influenza Vaccine: May 09, 2020 Seasonal Allergies Seasonal Allergies: Yes Past Medical History Surgeries: Adenoidectomy, Hysterectomy, Tonsillectomy : No Sexually Transmitted Disease: No HIV/AIDS: No Genitourinary: Kidney Stones Musculoskeletal: Arthritis, Fibromyalgia, Chronic Back Pain Endocrine: Hypothyroidsim Loss of Vision: Denies Hearing Impairment: Denies Psychosocial: Anxiety, Depression History of Blood Disorders: No Adverse Reaction to Blood Cueto: No (N/A) Review of Systems Constitutional: No dizziness, No fever EENTM: No hearing loss, No vision loss Respiratory: No short of breath, No wheezing Cardiovascular: palpitations Gastrointestinal: No abdominal pain, No diarrhea Genitourinary: No hematuria, No pain Musculoskeletal: joint pain (pain in L knee secondary to surgery) Skin: No lesions, No rash Psychiatric/Neurological: Denies Anxiety, Denies Depressed; Headache Physical Exam Physical Exam Vital Signs Vital Signs - First Documented 06/08/20 06:20 Temp 36.7 Pulse 89 Resp 18 B/P (MAP) 126/80 (95) Pulse Ox 98 O2 Delivery Room Air Capillary Refill : Less Than 3 SecondsLess Than 3 Seconds Height, Weight, BMI Height: 5'4.00" Weight: 165lbs. 0.0oz. [id number]; 32.42 BMI Method:Estimated General Appearance: No Apparent Distress, WD/WN HEENT: No Scleral Icterus (L), No Scleral Icterus (R) Neck: Normal Inspection, Non Tender Respiratory: Lungs Clear, Normal Breath Sounds, No Accessory Muscle Use, No Respiratory Distress Cardiovascular: No Edema, No Murmur, Tachycardia Gastrointestinal: No Organomegaly, No Pulsatile Mass, Non Tender Extremity: Normal Inspection, No Pedal Edema Neurologic/Psychiatric: Alert, No Motor/Sensory Deficits, Normal Mood/Affect Skin: Normal Color, Warm/Dry Results Results/Procedures Labs Laboratory Tests 06/09/20 04:25 Patient resulted labs reviewed. Assessment/Plan Assessment and Plan Assess & Plan/Chief Complaint Assessment -S/P L knee arthroplasty 06/08/[address] Bernstein -Anemia -Hyperglycemia -Hypocalcemia -Elevated Liver enzymes Plan -Discontinue Acetaminophen -Continue ambulation as tolerated -Pain control as needed -Continue to monitor labs Clinical Quality Measures DVT/VTE Risk/Contraindication: Risk Factor Score Per Nursin RFS Level Per Nursing on Admit: 4+=Very High KAREN MELO DO 06/09/20 2258: Past Nbwnkvj-Tqsula-Ziupiq Hx Past Med/Social Hx: Reviewed Nursing Past Med/Soc Hx, Reviewed and Corrections made Patient Social History Alcohol Use: Denies Use Smoking Status: Former Smoker Past Medical History Surgeries: Orthopedic Endocrine: Hypothyroidsim Review of Systems Constitutional: see HPI Musculoskeletal: joint pain (pain in L knee secondary to surgery) Physical Exam Physical Exam General Appearance: No Apparent Distress, WD/WN Respiratory: Lungs Clear Cardiovascular: Regular Rate, Rhythm Diagnosis/Problems Diagnosis/Problems (1) Osteoarthritis of left knee (2) Hypothyroid Supervisory-Addendum Brief Verification & Attestation Participated in pt care: history, MDM, physical Personally performed: exam, history, MDM, supervision of care Care discussed with: Medical Student Procedures: n/a Results interpretation: Verified all documentation Verification and Attestation of Medical Student E/M Service A medical student performed and documented this service in my presence. I reviewed and verified all information documented by the medical student and made modifications to such information, when appropriate. I personally performed the physical exam and medical decision making. Karen Melo, Jun 09, 2020,22:59 NABIL NOVA MED STUDENT Jun 09, 2020 14:20 KAREN MELO DO Jun 09, 2020 22:58
--- NOTE | 2020-06-09 15:20 | Occ Therapy Progress Note ---
Therapy Progress Note OT order received, chart reviewed. OT spoke with pt. Pt. states that she lives with spouse, and he will assist her as needed. Pt. reports that she has used the bathroom, and has had no issues with cleansing or toilet transfers. Pt. has handicap toilets at home. She also has a walker in shower with a seat and grab bar. Pt. is already dressed, and reports that she was able to dress herself with no issues threading shorts over feet. OT educates pt. on use of sock aide, but pt. declines practicing, and states that she likely will not be using socks at home. Pt. has a walker at home as well. Pt. declines showering at this time, and reports, "I took two showers before surgery." Pt. does not feel OT is warranted at this time, but will let nursing know if any questions or issues arise tomorrow. OT would be happy to come back into room and address any needs. Thank you for this referral. 1, visit [phone] Discharge OT services DIONTE BAEZ OT Jun 09, 2020 15:20
--- NOTE | 2020-06-09 15:24 | Physical Therapy Daily Note ---
PT Daily Note-Current Subjective Patient is very agreeable to participate with therapy. Requests pain pill, however, was told it wasn't time. Did utilize CROP RESEARCH SCIENTIST. Pain Numeric Pain Scale: 9 Location: Left Location Body Site: Knee Pain Description: Acute Mental Status Patient Orientation: Normal For Age Attachments: IV Transfers SCALE: Activities may be completed with or without assistive devices. 9-Xdqauyqfsz-hmxyxbo completes the activity by him/herself with no assistance from a helper. 5-Set-up or Clean-up Assistance-helper sets up or cleans up; patient completes activity. [place] assists only prior to or following the activity. 4-Supervision or Touching Assistance-helper provides verbal cues and/or touching/steadying and/or contact guard assistance as patient completes activity. Assistance may be provided throughout the activity or intermittently. 3-Partial/Moderate Assistance-helper does LESS THAN HALF the effort. [place] lifts, holds or supports trunk or limbs, but provides less than half the effort. 2-Substantial/Maximal Assistance-helper does MORE THAN HALF the effort. [place] lifts or holds trunk or limbs and provides more than half the effort. 8-Nasybyfkk-xllepq does ALL the effort. Patient does none of the effort to complete the activity. Or, the assistance of 2 or more helpers is required for the patient to complete the activity. If activity was not attempted, code reason: 7-Patient Refused. 9-Not Applicable-not attempted and the patient did not perform the activity before the current illness, exacerbation or injury. 10-Not Attempted due to Environmental Limitations-(lack of equipment, weather restraints, etc.). 88-Not Attempted due to Medical Conditions or Safety Concerns. Lying to Sitting/Side of Bed(Q: 6 Sit to Stand (QC): 6 Chair/Evl-et-Zapgj Xfer(QC): 6 Weight Bearing Left Lower Extremity: Left Weight Bearing/Tolerated Gait Training Does the Patient Walk?: Yes Distance: 225' Walk 10 feet (QC): 5 Walk 50 ft with 2 Turns(QC): 5 Walk 150 ft (QC): 5 Gait Assistive Device: FWW continues to perform TTWB with left LE secondary to knee pain and swelling. Skilled VC's for proper gait with heel/toe sequence. (did don tennis shoes) Exercises Supine Ex: Ankle pumps, Quad Set, Heel Slides, Straight leg raise Supine Reps: 10 Seated Therapy Exercises: Ankle pumps, Long arc quads Seated Reps: 10 Assessment Patient progressing with treatment. Limited left knee flexion due to pain and edema. PT encouraged patient to work past the pain. PT Wheel Polisher Goals Care Home Goals PT Wheel Polisher Goals Time Frame: Jun 15, 2020 Roll Left & Right (QC): 6 Sit to Lying (QC): 6 Lying-Sitting on Side/Bed(QC): 6 Sit to Stand (QC): 6 Chair/Hec-qm-Rhazh Xfer(QC): 6 Walk 10 feet (QC): 5 Walk 50ft with 2 Turns (QC): 5 Walk 150 ft (QC): 5 1 Step (curb) (QC): 4 4 Steps (QC): 4 PT Plan Treatment/Plan Treatment Plan: Continue Plan of Care Treatment Plan: Bed Mobility, Education, Functional Activity Ravindra, Functional Strength, Gait, Safety, Therapeutic Exercise, Transfers Treatment Duration: Jun 15, 2020 Frequency: 11 times per week Estimated Hrs Per Day: .25 hour per day Patient and/or Family Agrees t: Yes Time/GCodes Time In: 1440 Time Out: 1508 Total Billed Treatment Time: 28 Total Billed Treatment 1 visit EX 13 min GT 15 min MIREILLE DENISE PT Jun 09, 2020 15:24
[2020-06-09 16:05] VITALS: BP 150/87
[2020-06-09] MEDS: morphine PCA 100 MG/100 ML BAG IV PRN (16:20)
[2020-06-09] MEDS: LEVOTHYROXINE 112 MCG (LEVOTHROID) TAB PO SCH (20:32)
[2020-06-09 20:38] VITALS: BP 132/79
[2020-06-10 00:04] VITALS: BP 129/82
[2020-06-10 04:30] VITALS: BP 134/86
[2020-06-10] MEDS: ACETAMINOPHEN 325 MG TABLET PO PRN (05:04)
[2020-06-10 05:28] LABS: BASOPHILS % (AUTO) 0 % (0-10); EOSINOPHILS % (AUTO) 0 % (0-10); HEMATOCRIT 36 % (35-52); HEMOGLOBIN 11.9 g/dL (11.5-16.0); LYMPHOCYTES # (AUTO) 1.4 10^3/uL (1.0-4.0); LYMPHOCYTES % (AUTO) 25 % (12-44); MEAN CORPUSCULAR HEMOGLOBIN 30 pg (25-34); MEAN CORPUSCULAR HGB CONC 33 g/dL (32-36); MEAN CORPUSCULAR VOLUME 92 fL (80-99); MEAN PLATELET VOLUME 12.4 fL (9.0-12.2); MONOCYTES # (AUTO) 0.7 10^3/uL (0.0-1.0); MONOCYTES % (AUTO) 12 % (0-12); NEUTROPHILS # (AUTO) 3.5 10^3/uL (1.8-7.8); NEUTROPHILS % (AUTO) 62 % (42-75); PLATELET COUNT 99 10^3/uL (130-400); WHITE BLOOD COUNT 5.6 10^3/uL (4.3-11.0)
[2020-06-10 05:52] LABS: ALBUMIN 3.3 GM/DL (3.2-4.5)
[2020-06-10 05:53] LABS: CHLORIDE 103 MMOL/L (98-107); POTASSIUM 3.5 MMOL/L (3.6-5.0); SODIUM 139 MMOL/L (135-145)
[2020-06-10 05:54] LABS: CALCIUM 8.1 MG/DL (8.5-10.1)
[2020-06-10 05:55] LABS: GLUCOSE 109 MG/DL (70-105)
[2020-06-10 05:56] LABS: CARBON DIOXIDE 26 MMOL/L (21-32)
[2020-06-10 05:57] LABS: BILIRUBIN,TOTAL 0.6 MG/DL (0.1-1.0)
[2020-06-10 05:58] LABS: ALKALINE PHOSPHATASE 128 U/L (40-136)
[2020-06-10 05:59] LABS: CREATININE SERUM 0.64 MG/DL (0.60-1.30); GFR ESTIMATED > 60
[2020-06-10 06:00] LABS: BUN/CREATININE RATIO 8
[2020-06-10 06:02] LABS: ALANINE AMINOTRANSFERASE 87 U/L (0-55)
--- NOTE | 2020-06-10 06:24 | DISCHARGE SUMMARY ---
DATE OF SERVICE: DIAGNOSES: 1. Left knee primary osteoarthritis. 2. History of nephrolithiasis. 3. History of migraine headaches. 4. Hypothyroidism. PROCEDURE PERFORMED: Left total knee arthroplasty. SUMMARY: The patient is a 54-year-old female, who underwent a left total knee arthroplasty on the day of admission. Postoperatively, she did very well. At the time of discharge, her wound was clean and dry. She had no calf tenderness. Negative Homans sign. She was tolerating a diet well and tolerating pain with oral pain medication. CONDITION AT DISCHARGE: Good. DISCHARGE DIET: Regular. FOLLOWUP: Followup is in three weeks. Home physical therapy has been arranged. ACTIVITIES: Weightbearing as tolerated with walker. DISCHARGE MEDICATIONS: Home medications plus one aspirin per day for 30 days and Percocet as needed for pain. Job ID: [id number] DocumentID: [id number] Dictated Date: 06/09/2020 15:57:59 Fur Blender Date: 06/10/2020 06:23:55 Dictated By: EVARISTO BROWER MD
[2020-06-10] MEDS: THYROID (ARMOUR) 60 MG TABLET PO SCH (06:50)
[2020-06-10] MEDS: MULTIVIT W/MINERALS TAB (THERAGRAN M) PO SCH (06:50)
[2020-06-10] MEDS ORDERED: morphine INJ 4 MG/ML 1 ML (VIAL/SYRINGE) IVP PRN (07:00)
--- NOTE | 2020-06-10 07:01 | Progress Note ---
Standard Progress Note Progress Notes/Assess & Plan Date Seen by a Provider: Jun 10, 2020 Time Seen by a Provider: 07:00 Progress/Assessment & Plan no complaints radiographs--HW well positioned without fracture LLE--2plus DP pulse with brisk cap refill. Intact DF and PF of toes and ankle. Sensation intact to light touch throughout s/p LTKA mobilize as able Final Diagnosis feeling better Vital Signs Date Time Temp Pulse Resp B/P (MAP) Pulse Ox O2 Delivery O2 Flow Rate FiO2 06/10/20 06:54 18 06/10/20 05:34 36.9 06/10/20 05:04 38.2 06/10/20 04:30 38.2 112 18 134/86 (102) 94 Room Air 06/10/20 00:04 37.2 118 18 129/82 (98) 93 Room Air 06/09/20 20:38 38.0 114 16 132/79 (96) 97 Room Air 06/09/20 20:30 Room Air 06/09/20 17:43 16 06/09/20 17:39 37.8 06/09/20 16:52 38.2 06/09/20 16:20 16 06/09/20 16:05 38.2 112 16 150/87 (108) 96 Room Air 06/09/20 12:00 37.6 107 16 129/82 (98) 94 Room Air 06/09/20 09:00 Room Air 06/09/20 08:00 38.2 125 18 134/81 (98) 95 Room Air I & O 06/10/20 07:00 Intake Total 4115 ml Output Total 6650 ml Balance -2535 ml Laboratory Tests Test 06/10/20 05:15 Range/Units White Blood Count 5.6 4.3-11.0 10^3/uL Red Blood Count 3.98 3.80-5.11 10^6/uL Hemoglobin 11.9 11.5-16.0 g/dL Hematocrit 36 35-52 % Mean Corpuscular Volume 92 80-99 fL Mean Corpuscular Hemoglobin 30 25-34 pg Mean Corpuscular Hemoglobin Concent 33 32-36 g/dL Red Cell Distribution Width 13.3 10.0-14.5 % Platelet Count 99 L 130-400 10^3/uL Mean Platelet Volume 12.4 H 9.0-12.2 fL Immature Granulocyte % (Auto) 0 % Neutrophils (%) (Auto) 62 42-75 % Lymphocytes (%) (Auto) 25 12-44 % Monocytes (%) (Auto) 12 0-12 % Eosinophils (%) (Auto) 0 0-10 % Basophils (%) (Auto) 0 0-10 % Neutrophils # (Auto) 3.5 1.8-7.8 10^3/uL Lymphocytes # (Auto) 1.4 1.0-4.0 10^3/uL Monocytes # (Auto) 0.7 0.0-1.0 10^3/uL Eosinophils # (Auto) 0.0 0.0-0.3 10^3/uL Basophils # (Auto) 0.0 0.0-0.1 10^3/uL Immature Granulocyte # (Auto) 0.0 0.0-0.1 10^3/uL Sodium Level 139 135-145 MMOL/L Potassium Level 3.5 L 3.6-5.0 MMOL/L Chloride Level 103 98-107 MMOL/L Carbon Dioxide Level 26 21-32 MMOL/L Anion Gap 10 5-14 MMOL/L Blood Urea Nitrogen 5 L 7-18 MG/DL Creatinine 0.64 0.60-1.30 MG/DL Estimat Glomerular Filtration Rate > 60 BUN/Creatinine Ratio 8 Glucose Level 109 H 70-105 MG/DL Calcium Level 8.1 L 8.5-10.1 MG/DL Corrected Calcium 8.7 8.5-10.1 MG/DL Total Bilirubin 0.6 0.1-1.0 MG/DL Aspartate Amino Transf (AST/SGOT) 74 H 5-34 U/L Alanine Aminotransferase (ALT/SGPT) 87 H 0-55 U/L Alkaline Phosphatase 128 40-136 U/L Total Protein 6.0 L 6.4-8.2 GM/DL Albumin 3.3 3.2-4.5 GM/DL LLE--incision clean and dry. No calf tenderness. neg Dionicio's s/p LTKA doing well DC after PT today EVARISTO BROWER MD Jun 10, 2020 07:00
[2020-06-10] MEDS: ESTRADIOL 1 MG TAB (ESTRACE) PO SCH (08:11)
[2020-06-10] MEDS: ASPIRIN E.C. 81 MG (ECOTRIN) TAB PO SCH (08:11)
[2020-06-10] MEDS: ENOXAPARIN 30 MG/0.3 ML (LOVENOX) SYR SC SCH (08:11)
[2020-06-10] MEDS: GABAPENTIN 100 MG (NEURONTIN) CAP PO SCH (08:12)
[2020-06-10] MEDS: SENNA W/DOCUSATE (SENOKOT S) TABLET PO SCH (08:12)
--- NOTE | 2020-06-10 08:54 | NUR ---
CM/SS finalized plan Plan: The patient is discharging home today 06/10 with home health for Physical Therapy. Home Health: [facility] in [place], [place]. Start of care is tomorrow 06/11 for Nursing and Physical Therapy to start on Saturday. DME: Patient has a script for CPM machine. CM/SS contacted Aidee from [employer] to set up CPM. The needed information and script was emailed. She reports she'll deliver to patient's home tomorrow. CM/SS updated patient. She verbalized understanding. No further needs.
--- NOTE | 2020-06-10 10:36 | NUR ---
90ML MORPHINE WASTED WITH Issac RAZO RN AT THIS TIME.
--- NOTE | 2020-06-10 11:13 | Physical Therapy Daily Note ---
PT Daily Note-Current Subjective Patient dismissing after therapy. Agrees to PT. Pain Numeric Pain Scale: 5-Moderate Pain Location: Left Location Body Site: Knee Pain Description: Acute Mental Status Patient Orientation: Normal For Age Transfers SCALE: Activities may be completed with or without assistive devices. 7-Rivrfdiotq-jaflfzl completes the activity by him/herself with no assistance from a helper. 5-Set-up or Clean-up Assistance-helper sets up or cleans up; patient completes activity. [place] assists only prior to or following the activity. 4-Supervision or Touching Assistance-helper provides verbal cues and/or touching/steadying and/or contact guard assistance as patient completes activity. Assistance may be provided throughout the activity or intermittently. 3-Partial/Moderate Assistance-helper does LESS THAN HALF the effort. [place] lifts, holds or supports trunk or limbs, but provides less than half the effort. 2-Substantial/Maximal Assistance-helper does MORE THAN HALF the effort. [place] lifts or holds trunk or limbs and provides more than half the effort. 4-Bgqsshdsu-nywbui does ALL the effort. Patient does none of the effort to complete the activity. Or, the assistance of 2 or more helpers is required for the patient to complete the activity. If activity was not attempted, code reason: 7-Patient Refused. 9-Not Applicable-not attempted and the patient did not perform the activity befo re the current illness, exacerbation or injury. 10-Not Attempted due to Environmental Limitations-(lack of equipment, weather re straints, etc.). 88-Not Attempted due to Medical Conditions or Safety Concerns. Sit to Stand (QC): 6 Car Transfer (QC): 6 Weight Bearing Left Lower Extremity: Left Weight Bearing/Tolerated Gait Training Does the Patient Walk?: Yes Distance: 250' Walk 10 feet (QC): 6 Walk 50 ft with 2 Turns(QC): 6 Walk 150 ft (QC): 6 Gait Assistive Device: FWW slow, antalgic, with noted 20 degrees flexed knee (lacks extension) with VC's for heel/toe gait Stair Training Stair Training: Handrails/: No handrail, uses walker #of Steps: 5 1 Step (curb) (QC): 5 4 Steps (QC): 5 Stairs: Pattern: Step to Assessment Patient instructed to perform HEP 3/day and to ambulate PRN. Patient lacks 20 degrees extension and limited flexion due to pain and edema. PT Sustain Engineer Goals Sustain Engineer Goals PT Sustain Engineer Goals Time Frame: Jun 15, 2020 Roll Left & Right (QC): 6 Sit to Lying (QC): 6 Lying-Sitting on Side/Bed(QC): 6 Sit to Stand (QC): 6 Chair/Apl-nv-Ndanr Xfer(QC): 6 Walk 10 feet (QC): 5 Walk 50ft with 2 Turns (QC): 5 Walk 150 ft (QC): 5 1 Step (curb) (QC): 4 4 Steps (QC): 4 PT Plan Treatment/Plan Treatment Plan: Discontinue PT, goals met Treatment Plan: Bed Mobility, Education, Functional Activity Ravindra, Functional Strength, Gait, Safety, Therapeutic Exercise, Transfers Treatment Duration: Jun 15, 2020 Frequency: 11 times per week Estimated Hrs Per Day: .25 hour per day Patient and/or Family Agrees t: Yes Time/GCodes Time In: 900 Time Out: 915 Total Billed Treatment Time: 15 Total Billed Treatment 1 visit FA 15 min MIREILLE DENISE PT Jun 10, 2020 11:13
== END 2020-06-10 10:10 | disposition home health service (06) | DRG 470 ==
LOC: 4TH 06:05 → SURG 06:06 → 4TH 10:12
PROVIDERS: ADMIT Orthopaedic Surgery; ATTEND Orthopaedic Surgery
PROC: 0SRD0J9 Replacement of Left Knee Joint with Synthetic Substitute, Cemented, Open Approach (ICD-10-PCS; principal; 2020-06-08 07:55)
DX: M17.12 Unilateral primary osteoarthritis, left knee (principal); D64.9 Anemia, unspecified; E03.9 Hypothyroidism, unspecified; G43.909 Migraine, unspecified, not intractable, without status migrainosus; M79.7 Fibromyalgia; F41.9 Anxiety disorder, unspecified; F32.9 Major depressive disorder, single episode, unspecified; R73.9 Hyperglycemia, unspecified; E83.51 Hypocalcemia; Z87.891 Personal history of nicotine dependence; Z87.442 Personal history of urinary calculi; Z90.710 Acquired absence of both cervix and uterus; Z90.89 Acquired absence of other organs
CPT/HCPCS: 36415; 73560; 80053; 84703; 85014; 85018; 85025; 86850; 86900; 86901

== ENCOUNTER 2021-01-31 21:03 | Emergency (ER) | payer OTHER ==
[~2021-01-31] VITALS: Ht 162.6 cm; Wt 93.2 kg
[~2021-01-31 21:03] MED LIST changes: +BUTA-235 PO; -BUTA1TAB9 PO; -FOLI0.8T PO; +FOLI0.8T4 PO
[2021-01-31] MEDS ORDERED: fentaNYL INJ 100 MCG/2 ML AMP IVP STA (21:13)
[2021-01-31] MEDS ORDERED: ORPHENADRINE 60 MG/2 ML (NORFLEX) AMP (ED ONLY) IV ONE (21:15)
[2021-01-31] MEDS ORDERED: TETANUS,DIPTH,PERTUSS P/F (BOOSTRIX) 0.5 ML VIAL IM ONE (21:15)
--- NOTE | 2021-01-31 21:15 | ED Lower Extremity ---
General Stated Complaint: FALL Source: patient, EMS History of Present Illness Date Seen by Provider: Jan 31, 2021 Time Seen by Provider: 21:03 Initial Comments PT ARRIVES VIA [facility] FROM [place] PT WAS PAINTING, STANDING ON A STEP STOOL, AND TURNED AND FELL OFF THE STEP STOOL, APPROXIMATELY 2 FEET, LANDING DIRECTLY ON LEFT KNEE ONTO [place] FLOOR OCCURRED JUST PRIOR TO ARRIVAL PT HAD LEFT TOTAL KNEE REPLACEMENT BY DR. BROWER 06/2020 DID NOT HIT HEAD AND NO LOSS OF CONSCIOUSNESS NO NECK OR BACK PAIN NO PARESTHESIAS OR MOTOR DEFICITS NO OTHER INJURIES FROM THE INCIDENT EMS GAVE 100 MCG FENTANYL PRIOR TO ARRIVAL C/O MUSCLE SPASMS IN LEFT THIGH NO COVID-19 VACCINATION NO COVID-19 SYMPTOMS OR KNOWN EXPOSURE PCP: ROXANE AGUILAR/[facility] IN [place] ORTHOPEDIC SURGEON: DR. BROWER Allergies and Home Medications Allergies Coded Allergies: adhesive tape (Verified Allergy, Mild, RASH, 06/08/20) Home Medications Butalb/Acetaminophen/Caffeine 1 Each Tablet, 1 EACH PO Q6H PRN for HEADACHES, (Reported) Cholecalciferol (Vitamin D3) 125 Mcg Tab.rapdis, 125 MCG PO DAILY, (Reported) Estradiol 2 Mg Tablet, 2 MG PO DAILY, (Reported) Ferrous Sulfate 325 Mg Tablet, 325 MG PO DAILY, (Reported) Folic Acid 0.8 Mg Tablet, 0.8 MG PO DAILY, (Reported) Gabapentin 100 Mg Capsule, 100 MG PO DAILY, (Reported) Gabapentin 100 Mg Capsule, 200 MG PO HS, (Reported) Levothyroxine Sodium 112 Mcg Tablet, 112 MCG PO HS, (Reported) Magnesium Oxide 400 Mg Tablet, 400 MG PO DAILY, (Reported) Pregabalin 300 Mg Capsule, 300 MG PO BID, (Reported) Thyroid,Pork 65 Mg Tablet, 65 MG PO DAILY, (Reported) Tramadol HCl 50 Mg Tablet, 50-100 MG PO Q6H PRN for PAIN-MODERATE (5-7), (Reported) Venlafaxine HCl 75 Mg Tab.er.24, 75 MG PO DAILY, (Reported) Zolpidem Tartrate 10 Mg Tablet, 5 MG PO HS, (Reported) Patient Home Medication List Home Medication List Reviewed: Yes Review of Systems Constitutional: no symptoms reported EENTM: no symptoms reported Respiratory: no symptoms reported Cardiovascular: no symptoms reported Gastrointestinal: no symptoms reported Genitourinary: no symptoms reported Control/STD Prophylaxis: Other (S/P HYST) Musculoskeletal: see HPI Skin: other (HAS TINY ABRASTION TO LEFT KNEE) Psychiatric/Neurological: No Symptoms Reported Past Decfsea-Hfmbsq-Eiogoi Hx Past Med/Social Hx: Reviewed and Corrections made Patient Social History Alcohol Use: Denies Use Drug of Choice: DENIES Smoking Status: Never a Smoker Recent Hopitalizations: No Immunizations Up To Date Tetanus Booster (TDap): Unknown Date of Influenza Vaccine: May 09, 2020 Seasonal Allergies Seasonal Allergies: Yes Past Medical History Surgeries: Yes (L SHOULDER X3;R SHOULDER X2;GASTRIC BYPASS;L KNEE SCOPE/TKR; ESWL;SINUS) Abdominal, Hysterectomy, Joint Replacement, Oophorectomy, Orthopedic, Renal Respiratory: No Cardiac: No Neurological: Yes Headaches /Migraines 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 Sexually Transmitted Disease: No HIV/AIDS: No Genitourinary: Yes Kidney Stones Gastrointestinal: No (S/P GASTRIC BYPASS) Musculoskeletal: Yes (MULTIPLE ORTHO SURGERIES; L TKR 06/2020) Arthritis, Fibromyalgia, Chronic Back Pain Endocrine: Yes Hypothyroidsim HEENT: Yes (GLASSES) Loss of Vision: Denies Hearing Impairment: Denies Cancer: No Psychosocial: Yes Anxiety, Depression Integumentary: No Blood Disorders: No Adverse Reaction/Blood Tranf: No (N/A) Physical Exam Vital Signs Vital Signs - First Documented 01/31/21 21:09 Temp 36.6 Pulse 91 Resp 18 B/P (MAP) 141/99 (113) Pulse Ox 97 O2 Delivery Room Air Capillary Refill : Height, Weight, BMI Height: 5'4.00" Weight: 165lbs. 0.0oz. 74.473317kl; 32.42 BMI Method:Estimated General Appearance: WD/WN, other (IN OBVIOUS PAIN, MOANING) Cardiovascular: normal peripheral pulses, regular rate, rhythm Respiratory: normal breath sounds Gastrointestinal: non tender Hips: bilateral hip normal inspection Legs: bilateral leg normal inspection Knees: right knee normal inspection; left knee other (MODERATE SWELLING TO LEFT KNEE, WITH MARKED TENDERNESS, POSITIONED IN SLIGHT FLEXION AT KNEE. TINY ABRASION JUST MEDIAL TO SCAR FROM PREVIOUS TKR. NO ACTIVE BLEEDING. DISTAL MOTOR/SENSORY/VASCULAR INTACT) Ankles: bilateral ankle normal inspection Feet: bilateral foot normal inspection Neurologic/Tendon: normal sensation Neurologic/Psychiatric: no motor/sensory deficits, alert, oriented x 3 Skin: normal color, warm/dry Progress/Results/Core Measures Results/Orders Lab Results Laboratory Tests Test 01/31/21 22:10 01/31/21 22:22 Range/Units White Blood Count 9.4 4.3-11.0 10^3/uL Red Blood Count 4.38 3.80-5.11 10^6/uL Hemoglobin 13.4 11.5-16.0 g/dL Hematocrit 41 35-52 % Mean Corpuscular Volume 94 80-99 fL Mean Corpuscular Hemoglobin 31 25-34 pg Mean Corpuscular Hemoglobin Concent 33 32-36 g/dL Red Cell Distribution Width 13.1 10.0-14.5 % Platelet Count 153 130-400 10^3/uL Mean Platelet Volume 12.0 9.0-12.2 fL Immature Granulocyte % (Auto) 0 % Neutrophils (%) (Auto) 72 42-75 % Lymphocytes (%) (Auto) 19 12-44 % Monocytes (%) (Auto) 5 0-12 % Eosinophils (%) (Auto) 2 0-10 % Basophils (%) (Auto) 1 0-10 % Neutrophils # (Auto) 6.8 1.8-7.8 10^3/uL Lymphocytes # (Auto) 1.8 1.0-4.0 10^3/uL Monocytes # (Auto) 0.5 0.0-1.0 10^3/uL Eosinophils # (Auto) 0.2 0.0-0.3 10^3/uL Basophils # (Auto) 0.1 0.0-0.1 10^3/uL Immature Granulocyte # (Auto) 0.0 0.0-0.1 10^3/uL Sodium Level 139 135-145 MMOL/L Potassium Level 3.7 3.6-5.0 MMOL/L Chloride Level 104 98-107 MMOL/L Carbon Dioxide Level 22 21-32 MMOL/L Anion Gap 13 5-14 MMOL/L Blood Urea Nitrogen 10 7-18 MG/DL Creatinine 0.78 0.60-1.30 MG/DL Estimat Glomerular Filtration Rate > 60 BUN/Creatinine Ratio 13 Glucose Level 98 70-105 MG/DL Calcium Level 9.2 8.5-10.1 MG/DL Corrected Calcium 9.1 8.5-10.1 MG/DL Total Bilirubin 0.3 0.1-1.0 MG/DL Aspartate Amino Transf (AST/SGOT) 52 H 5-34 U/L Alanine Aminotransferase (ALT/SGPT) 26 0-55 U/L Alkaline Phosphatase 115 40-136 U/L Total Protein 7.3 6.4-8.2 GM/DL Albumin 4.1 3.2-4.5 GM/DL Urine Color YELLOW Urine Clarity CLOUDY Urine pH 6.0 5-9 Urine Specific Reliance >=1.030 1.016-1.022 Urine Protein NEGATIVE NEGATIVE Urine Glucose (UA) NEGATIVE NEGATIVE Urine Ketones TRACE H NEGATIVE Urine Nitrite NEGATIVE NEGATIVE Urine Bilirubin NEGATIVE NEGATIVE Urine Urobilinogen 0.2 < = 1.0 MG/DL Urine Leukocyte Esterase NEGATIVE NEGATIVE Urine RBC (Auto) NEGATIVE NEGATIVE Urine RBC NONE /HPF Urine WBC NONE /HPF Urine Squamous Epithelial Cells 2-5 /HPF Urine Crystals PRESENT H /LPF Urine Calcium Oxalate Crystals MODERATE H /LPF Urine Bacteria NEGATIVE /HPF Urine Casts NONE /LPF Urine Mucus MODERATE H /LPF Urine Culture Indicated NO My Orders Orders - MAGDALENE FERNANDEZ DO Knee, Left, 3 Views (01/31/21 21:13) Fentanyl Inj (Sublimaze Injection) (01/31/21 21:13) Orphenadrine Inj (Ed Only) (Norflex Inje (01/31/21 21:15) Dipht,Pertuss(Acell),Tet Adult (Boostrix (01/31/21 21:15) Morphine Injection (Morphine Injection (01/31/21 22:00) Cbc With Automated Diff (01/31/21 21:48) Comprehensive Metabolic Panel (01/31/21 21:48) Ua Culture If Indicated (01/31/21 21:48) Catheter(Urinary) Insert & Ass 03,15 (01/31/21 21:48) Morphine Injection (Morphine Injection (01/31/21 21:54) Morphine Injection (Morphine Injection (01/31/21 22:36) Medications Given in ED Current Medications Medications Dose Ordered Sig/Marin Route Start Time Stop Time Status Last Admin Dose Admin Diphtheria/ Tetanus/Acell Pertussis 0.5 ml ONCE ONCE IM 01/31/21 21:15 01/31/21 21:16 DC 01/31/21 22:04 0.5 ML Orphenadrine Citrate 60 mg ONCE ONCE IV 01/31/21 21:15 01/31/21 21:16 DC 01/31/21 21:25 60 MG Vital Signs/I&O 01/31/21 21:09 Temp 36.6 Pulse 91 Resp 18 B/P (MAP) 141/99 (113) Pulse Ox 97 O2 Delivery Room Air Progress Progress Note : Progress Note DPT VACCINE GIVEN GIVEN FENTANYL 100 MCG WITH OUT RELIEF OF PAIN GIVEN NORFLEX FOR MUSCLE SPASMS GIVEN MORPHINE FOR PAIN WITH SOME RELIEF PLACED IN HAIR TRACTION WITH IMPROVEMENT IN PAIN DISTAL MOTOR/SENSORY/VASCULAR INTACT Diagnostic Imaging Comments XRAYS LEFT KNEE--PER RADIOLOGIST REPORT AT 2149 FINDINGS: There is a comminuted fracture of the distal left femoral diaphysis just above the knee arthroplasty. The proximal fracture fragment is displaced anteriorly. Proximal tibia and fibula are intact. IMPRESSION: Comminuted fracture of the distal left femoral diaphysis as described. Reviewed: Reviewed by Ak Departure Communication (Admissions) 2146--CALLED DR. BROWER, MESSAGE LEFT ON CELL. 2201--CALLED [facility], WILL CALL BACK 2209--CALLED DR. BROWER, MESSAGE LEFT ON CELL 2212--[facility] CALLED BACK, PT HAS BEEN ACCEPTED BY DR. VALDOVINOS. EMS NOTIFIED OF NEED FOR TRANSFER 2218--DR. BROWER CALLED BACK AND AGREES WITH TRANSFER DUE TO COMPLEXITY OF INJURY AND CLOSE APPROXIMATION TO HARDWARE Impression Primary Impression: Fracture of distal end of left femur Additional Impression: Status post left knee replacement Disposition: XFER SHT-TRM HOSP Condition: Stable Transfer Transfer Reason: Exceeds level of care Transfer Facility: Method of Transfer: EMS Departure-Patient Inst. Referrals: NO,LOCAL PHYSICIAN (PCP/Family) Primary Care Physician MAGDALENE FERNANDEZ DO Jan 31, 2021 21:15
--- NOTE | 2021-01-31 21:48 | Diagnostic Imaging Report ---
INDICATION: Fall. 3 views were obtained FINDINGS: There is a comminuted fracture of the distal left femoral diaphysis just above the knee arthroplasty. The proximal fracture fragment is displaced anteriorly. Proximal tibia and fibula are intact. IMPRESSION: Comminuted fracture of the distal left femoral diaphysis as described. Dictated by: Dictated on workstation # [id number]
[2021-01-31] MEDS ORDERED: morphine INJ 10 MG/ML 1ML (SYR OR VIAL) IVP STA ×2 (21:54→22:36)
[2021-01-31] MEDS ORDERED: morphine INJ 4 MG/ML 1 ML (VIAL/SYRINGE) IVP ONE (22:00)
[2021-01-31 22:15] LABS: BASOPHILS # (AUTO) 0.1 10^3/uL (0.0-0.1); BASOPHILS % (AUTO) 1 % (0-10); EOSINOPHILS # (AUTO) 0.2 10^3/uL (0.0-0.3); EOSINOPHILS % (AUTO) 2 % (0-10); HEMATOCRIT 41 % (35-52); HEMOGLOBIN 13.4 g/dL (11.5-16.0); LYMPHOCYTES # (AUTO) 1.8 10^3/uL (1.0-4.0); LYMPHOCYTES % (AUTO) 19 % (12-44); MEAN CORPUSCULAR HEMOGLOBIN 31 pg (25-34); MEAN CORPUSCULAR HGB CONC 33 g/dL (32-36); MEAN CORPUSCULAR VOLUME 94 fL (80-99); MONOCYTES # (AUTO) 0.5 10^3/uL (0.0-1.0); MONOCYTES % (AUTO) 5 % (0-12); NEUTROPHILS # (AUTO) 6.8 10^3/uL (1.8-7.8); NEUTROPHILS % (AUTO) 72 % (42-75); PLATELET COUNT 153 10^3/uL (130-400); WHITE BLOOD COUNT 9.4 10^3/uL (4.3-11.0)
[2021-01-31 22:21] LABS: ALBUMIN 4.1 GM/DL (3.2-4.5); CHLORIDE 104 MMOL/L (98-107); POTASSIUM 3.7 MMOL/L (3.6-5.0); SODIUM 139 MMOL/L (135-145)
[2021-01-31 22:22] LABS: CALCIUM 9.2 MG/DL (8.5-10.1)
[2021-01-31 22:23] LABS: GLUCOSE 98 MG/DL (70-105); TOTAL PROTEIN 7.3 GM/DL (6.4-8.2)
[2021-01-31 22:24] LABS: CARBON DIOXIDE 22 MMOL/L (21-32)
[2021-01-31 22:25] LABS: BILIRUBIN,TOTAL 0.3 MG/DL (0.1-1.0)
[2021-01-31 22:27] LABS: BILIRUBIN,URINE NEGATIVE (NEGATIVE); CLARITY,URINE CLOUDY; COLOR,URINE YELLOW; GLUCOSE, URINE (UA) NEGATIVE (NEGATIVE); KETONES,URINE TRACE (NEGATIVE); LEUKOCYTE ESTERASE ,URINE NEGATIVE (NEGATIVE); NITRITE,URINE NEGATIVE (NEGATIVE); PROTEIN,URINE NEGATIVE (NEGATIVE)
[2021-01-31 22:27] LABS: ALKALINE PHOSPHATASE 115 U/L (40-136); CREATININE SERUM 0.78 MG/DL (0.60-1.30); GFR ESTIMATED > 60
[2021-01-31 22:28] LABS: BUN/CREATININE RATIO 13
[2021-01-31 22:30] LABS: ALANINE AMINOTRANSFERASE 26 U/L (0-55)
[2021-01-31 22:37] LABS: BACTERIA,URINE NEGATIVE /HPF; CALCIUM OXALATE CRYSTALS,UR MODERATE /LPF
[2021-01-31 23:30] VITALS: BP 155/89
== END 2021-01-31 23:30 | disposition short-term general hospital (02) ==
LOC: EDUNIT# 21:03 → ER 21:08
DX: S72.492A Other fracture of lower end of left femur, initial encounter for closed fracture (principal); G43.909 Migraine, unspecified, not intractable, without status migrainosus; M79.7 Fibromyalgia; G89.29 Other chronic pain; M54.9 Dorsalgia, unspecified; E03.9 Hypothyroidism, unspecified; F41.9 Anxiety disorder, unspecified; F32.9 Major depressive disorder, single episode, unspecified; Z96.652 Presence of left artificial knee joint; Z79.890 Hormone replacement therapy; Z79.899 Other long term (current) drug therapy; W08.XXXA Fall from other furniture, initial encounter
CPT/HCPCS: 36415; 51702; 73562; 80053; 81000; 85025; 90715